=== PATIENT | female | born 1955 | race Caucasian/White ===

== ENCOUNTER → 2020-10-16 | Outpatient (CLI) | payer BC, OTHER | LOC: HEART 5 11:00 | DX: I49.1 Atrial premature depolarization (principal); I47.2 Ventricular tachycardia; R00.2 Palpitations ==

== ENCOUNTER → 2021-04-08 | Outpatient (CLI) | payer BC | LOC: HEART 5 10:31 | DX: Z01.810 Encounter for preprocedural cardiovascular examination (principal); I47.2 Ventricular tachycardia; I08.1 Rheumatic disorders of both mitral and tricuspid valves; I27.20 Pulmonary hypertension, unspecified | CPT/HCPCS: 93306 ==